=== PATIENT | female | born 1985 | race Caucasian/White ===

== ENCOUNTER → 2016-08-10 | Outpatient (CLI) | payer BC ==
[~2016-08-10] MED LIST: LORTAB 5/500 501 TAB PO; MOTRIN 600600 MG/TAB PO; MOTRIN 800800 MG/TAB PO; NOVOLOG 100U100 U/M1 SC; PERCOCET 325 MG1 TA2 PO; PHENERGAN 25 TA25 MG PO; PRENATAL MVI; PRENATAL VITAMI1 TAB PO; birth control patch
== END ==
LOC: SUN.DIA 08:47
DX: O24.419 Gestational diabetes mellitus in pregnancy, unspecified control (principal); Z3A.29 29 weeks gestation of pregnancy
CPT/HCPCS: G0108

== ENCOUNTER → 2016-08-17 | Outpatient (CLI) | payer BC | LOC: SUN.DIA 09:14 | DX: O24.419 Gestational diabetes mellitus in pregnancy, unspecified control (principal); Z71.3 Dietary counseling and surveillance; Z3A.31 31 weeks gestation of pregnancy | CPT/HCPCS: G0108 ==

== ENCOUNTER 2016-10-18 17:40 | Inpatient (IN) | payer BC ==
[~2016-10-18] VITALS: Ht 162.6 cm; Wt 83.2 kg
[2016-10-18] VITALS (11 sets, daily range): BP systolic 90–144; BP diastolic 53–76; PULSE 59–110; TEMP 98.6
[~2016-10-18 17:40] MED LIST changes: -MOTRIN 800800 MG/TAB PO; -PRENATAL MVI
[2016-10-18] MEDS ORDERED: PRENATAL MVI (17:59)
[2016-10-18 18:39] LABS: BASO % 0.3 % (0.0-2.0); EOS % 0.2 % (0-4.0); GRAN # 7.3 (1.4-6.5); GRAN % 75.8 % (42.2-75.2); HEMATOCRIT 37.2 % (37.0-47.0); HEMOGLOBIN 12.5 g/dl (12.5-16.0); LYMPH # 1.8 (1.2-3.4); LYMPH % 18.3 % (20.0-51.0); MEAN CELL VOLUME 81 fl (80.0-100.0); MEAN CORPUSCULAR HEMOGLOBIN 27 pg (27.0-31.0); MEAN CORPUSCULAR HGB CONC 34 g/dl (33.0-37.0); MEAN PLATELET VOLUME 10.8 fl (7.4-10.4); MONO # 0.5 (0.1-0.6); MONO % 4.9 % (1.7-9.3); PLATELET COUNT 197 K/mm3 (130-400); REDCELL DISTRIBUTION WIDTH-CV 15.4 % (11.5-14.5); WHITE BLOOD COUNT 9.6 K/mm3 (4.8-10.8)
[2016-10-19] VITALS (20 sets, daily range): BP systolic 101–140; BP diastolic 56–78; PULSE 65–122; TEMP 97.5–97.7
[2016-10-20 03:41] VITALS: BP 98/63; PULSE 69; TEMP 97.6
[2016-10-20 09:52] VITALS: BP 97/60; PULSE 64; TEMP 97.4
[2016-10-20 16:33] VITALS: BP 102/67; PULSE 68; TEMP 97.7
[2016-10-20] MEDS ORDERED: PERCOCET 325 MG1 TA2 PO (17:42)
[2016-10-20] MEDS ORDERED: MOTRIN 800800 MG/TAB PO (17:42)
[2016-10-20 19:00] VITALS: BP 127/81; PULSE 75; TEMP 98
[2016-10-21 08:58] VITALS: BP 117/65; PULSE 72; TEMP 98.3
== END 2016-10-21 11:15 | disposition home or self-care (01) | DRG 775 ==
LOC: LDRO 17:40 → OB 17:48 → LDR 17:48 → OB 10-19 04:52 → LDRO 10-21 15:51
PROVIDERS: Obstetrics & Gynecology
PROC: 10E0XZZ Delivery of Products of Conception, External Approach (ICD-10-PCS; principal; 2016-10-19)
PROC: 0KQM0ZZ Repair Perineum Muscle, Open Approach (ICD-10-PCS; 2016-10-19)
DX: O24.420 Gestational diabetes mellitus in childbirth, diet controlled (principal); O70.1 Second degree perineal laceration during delivery; Z3A.39 39 weeks gestation of pregnancy; Z37.0 Single live birth
CPT/HCPCS: J2210; J2590; J7120

== ENCOUNTER → 2018-08-10 | Outpatient (CLI) | payer BC ==
[~2018-08-10] MED LIST changes: +MOTRIN 800800 MG/TAB PO; +PRENATAL MVI
== END ==
LOC: SUN.DIA 08:41
DX: O24.419 Gestational diabetes mellitus in pregnancy, unspecified control (principal); Z3A.30 30 weeks gestation of pregnancy
CPT/HCPCS: G0108

== ENCOUNTER → 2018-08-29 | Outpatient (CLI) | payer BC | LOC: SUN.DIA 09:16 | DX: O24.419 Gestational diabetes mellitus in pregnancy, unspecified control (principal); Z3A.32 32 weeks gestation of pregnancy | CPT/HCPCS: G0108 ==

== ENCOUNTER → 2018-09-26 | Outpatient (CLI) | payer BC | LOC: DIA.ED 09:47 | DX: O24.419 Gestational diabetes mellitus in pregnancy, unspecified control (principal); Z3A.36 36 weeks gestation of pregnancy | CPT/HCPCS: G0108 ==

== ENCOUNTER 2018-10-21 07:43 | Inpatient (IN) | payer BC ==
[~2018-10-21] VITALS: Ht 162.6 cm; Wt 85.9 kg
[2018-10-21] VITALS (14 sets, daily range): BP systolic 108–170; BP diastolic 61–84; PULSE 71–118; TEMP 97.5–98.5
--- NOTE | 2018-10-21 07:50 | NUR ---
Pt here from ER with c/o contractions that started at 0500 this AM. 39.1 weeks gestation, G3L2. Pt states baby has been active, denies any vaginal bleeding or leaking of fluid. Pt to [facility], explained. SVE: /-2, bag of cesar intact. GBS negative. Pt requesting epidural. 0801:Dr Randolph called and notified of pt here. Orders received to admit and pt may have epidural. 0802:Yuridia DAMON called and notified. Assessment complete. Pt with hx of pp hemorrhage and pt failed 1 hr glucose test and chose to decline 3 hour and check BS. All BS have been WNL. IV started to left wrist. Blood drawn from site and LR bolus started and infusing without difficulty. Consents signed. FHR reactive, contractions every 3-5 minutes. 0820:Yuridia DAMON here and at bedside. Pt sitting up on side of bed. Single shot given at 0829, epidural placed. Pt repositioned to left side. 0840:Dr Randolph here and at nurse's station.
[2018-10-21] MEDS ORDERED: PROBIOTIC FORMU1 CAP PO (08:12)
[2018-10-21 08:28] LABS: BASO % 0.3 % (0.0-2.0); EOS % 0.3 % (0-4.0); GRAN # 8.6 (1.4-6.5); GRAN % 73.4 % (42.2-75.2); HEMOGLOBIN 13.8 g/dl (12.5-16.0); LYMPH # 2.2 (1.2-3.4); LYMPH % 18.8 % (20.0-51.0); MEAN CELL VOLUME 83 fl (80.0-100.0); MEAN CORPUSCULAR HEMOGLOBIN 28 pg (27.0-31.0); MEAN CORPUSCULAR HGB CONC 34 g/dl (33.0-37.0); MEAN PLATELET VOLUME 10.2 fl (7.4-10.4); MONO # 0.8 (0.1-0.6); MONO % 6.6 % (1.7-9.3); PLATELET COUNT 230 K/mm3 (130-400); RED BLOOD COUNT 4.92 M/mm3 (4.10-5.30); REDCELL DISTRIBUTION WIDTH-CV 13.6 % (11.5-14.5)
--- NOTE | 2018-10-21 08:42 | NUR ---
Dr Randolph at bedside and assessing patient and FHR strip. 0842: SVE per physician 90/0 and AROM with clear fluid noted. Plan of care discussed. Blood sugar-[address] Randolph notified. 0848: Patient states feeling very tired/weak, Blood pressure-84/52. LR bolus continues to bolus. 0850: Blood pressure-86/56 0853: Ephedrine IV 10mg given. 0858: BP-98/63 0900: BP-102/70, Patient states she is feeling better. 0903: BP-115/76 Patient comfortable and relaxed at this time.
--- NOTE | 2018-10-21 09:20 | NUR ---
SVE-10/100/0 Dr. Randolph at bedside and notified. Patient set up for vaginal delivery and bed taken apart. 0926: Patient begins to push per Dr. Toledo orders. 0936: Spontanous vaginal delivery of head and followed by body, infant to patient abdomen and Patricia RN assumes care of . Cord clamped by Dr. Randolph and cut by FOB. Cord blood obtained. 0840: Spontaneous vaginal delivery of placenta and pitocin started per protocol. Fundal massage done/firm/bleeding WNL. straight catherizes patient and begins to repairn laceration. Patient repositioned and ice pack to perieum. Plan of care discussed.
[2018-10-22 09:01] LABS: HEMATOCRIT 38.8 % (37.0-47.0); HEMOGLOBIN 12.5 g/dl (12.5-16.0)
[2018-10-22 09:30] VITALS: BP 113/78; PULSE 72; TEMP 98
[2018-10-22 16:27] VITALS: BP 126/87; PULSE 95; TEMP 98
[2018-10-22 20:15] VITALS: BP 120/80; PULSE 64; TEMP 98
[2018-10-23 08:45] VITALS: BP 119/70; PULSE 86; TEMP 97.5
[2018-10-23] MEDS ORDERED: MOTRIN 600600 MG/TAB PO (09:26)
--- NOTE | 2018-10-23 11:11 | NUR ---
Initial visit; Mom indisposed, Dad thanked [employer] for offering congratulations and God's blessings for the of their daughter. [employer] thanked family for choosing [place].
== END 2018-10-23 10:45 | disposition home or self-care (01) | DRG 807 ==
LOC: LDRO 07:43 → LDR 08:04 → OB 11:50
PROVIDERS: ADMIT Obstetrics & Gynecology
PROC: 10E0XZZ Delivery of Products of Conception, External Approach (ICD-10-PCS; principal; 2018-10-21)
PROC: 0KQM0ZZ Repair Perineum Muscle, Open Approach (ICD-10-PCS; 2018-10-21)
DX: O24.420 Gestational diabetes mellitus in childbirth, diet controlled (principal); Z37.0 Single live birth; O99.62 Diseases of the digestive system complicating childbirth; K21.9 Gastro-esophageal reflux disease without esophagitis; Z3A.39 39 weeks gestation of pregnancy; Z23 Encounter for immunization
CPT/HCPCS: J2590; J7120

== ENCOUNTER 2019-10-30 10:00 | Outpatient (RCR) | payer BC ==
[~2019-10-30 10:00] MED LIST changes: +PROBIOTIC FORMU1 CAP PO
== END 2019-10-30 12:58 | disposition home or self-care (01) ==
LOC: WSOT 10:00
DX: Z98.890 Other specified postprocedural states (principal)

== ENCOUNTER 2022-01-12 04:05 | Inpatient (IN) | payer BC ==
[2022-01-12] VITALS (29 sets, daily range): BP systolic 95–177; BP diastolic 53–88; PULSE 81–127; TEMP 97.9–98.8
[~2022-01-12] VITALS: Ht 162.6 cm; Wt 93.6 kg
--- NOTE | 2022-01-12 07:00 | NUR ---
2694 DR BLACKWELL CALLED AND UPDATED ON PT. DR BLACKWELL STATES "HE WILL BE IN SOON AND DISCUSS THE PLAN OF CARE WITH PT THEN".
[2022-01-12 07:33] LABS: HEMATOCRIT 39.3 % (37.0-47.0); HEMOGLOBIN 12.4 g/dl (12.5-16.0); MEAN CELL VOLUME 81 fl (80.0-100.0); MEAN CORPUSCULAR HEMOGLOBIN 26 pg (27-31); MEAN CORPUSCULAR HGB CONC 32 g/dl (33.0-37.0); MEAN PLATELET VOLUME 10.5 fl (7.4-10.4); PLATELET COUNT 207 K/mm3 (130-400); RED BLOOD COUNT 4.86 M/mm3 (4.10-5.30); REDCELL DISTRIBUTION WIDTH-CV 14.4 % (11.5-14.5)
[2022-01-12 07:48] LABS: ALBUMIN 2.7 gm/dL (3.5-5.0); BILIRUBIN,TOTAL 0.5 mg/dL (0.2-1.2); CALCIUM 8.5 mg/dL (8.4-10.2); CREATININE, serum 0.74 mg/dL (0.57-1.11); POTASSIUM 4.1 mmol/L (3.5-4.5); TOTAL PROTEIN 6.2 gm/dL (6.2-8.1)
--- NOTE | 2022-01-12 08:10 | NUR ---
0808 DR RISHI VALIENTE /-3. GIVES ORDERS TO THIS RN TO ADMIT PATIENT FOR ACTIVE LABOR. 0810 DR BLACKWELL CONFIRMS VERTEX PRESENTATION WITH ULTRASOUND.
[2022-01-12 08:54] LABS: BAND 1 % (0-10); HYPOCHROMIA 2+; LYMPHOCYTE 3 % (20.0-51.0); NEUTROPHILS 95 % (42.0-75.2); PLATELET ESTIMATE NORMAL (NORMAL)
--- NOTE | 2022-01-12 10:58 | NUR ---
MATERNAL HR TRACING
--- NOTE | 2022-01-12 11:10 | NUR ---
THIS RN GIVES B DONNY RN REPORT
--- NOTE | 2022-01-12 12:00 | NUR ---
1145- KIMBERLI Ray at bedside to place Pt on EFM and TOCO, difficult to get tracting well due to materanl position. 1152- Pt repostioned to RL, FHR found and tracing well. TOCO not tracing well due to maternal position.
--- NOTE | 2022-01-12 12:30 | NUR ---
1218- Pt repositioned to sitting on side of bed for epidural placement. MARISOL Shi at bedside. O2 sat monitor on and tracing maternal HR. FHR tracing maternal HR due to maternal position. 1225- Single shot, see anesthesia record. 1230- Pt assisted to semi-fowlers with LL. EFM and TOCO adjusted and tracing well.
--- NOTE | 2022-01-12 15:15 | NUR ---
1505- Dr Randolph at bedside. Whitman removed without difficulty. Pt and room prepped for delivery. Castillo Nursery RN at bedside. 1511- Pt pushes with UC, good movement of head noted. 1515- of viable male infant, tended to by nursery RN. Cord clamped and cut after delay of approx 60 seconds. Infant [id number] with mother. 1519- Spontaneous delivery of placenta. Fundus massaged to firm by MD. 2nd degree repair approximated by MD. Small amount of free flow bleeding noted, fundus firm. Pericare completed. Chux changed and ice pack to perineum.
--- NOTE | 2022-01-12 15:50 | NUR ---
1550- Benton sized cloted noted with fundal massage and moderate bleeding, fundus firm. Pt preparing to BF . 1600- Report given to KIMBERLI Ray, she assumes care at this time.
--- NOTE | 2022-01-12 18:00 | NUR ---
1800 PT UNABLE TO LIFT LEGS BILATERALLY. PT WAS TRANSFERED VIA [facility] TO ROOM. PAD, UNDERWEAR, AND GOWN CHANGED AT THIS TIME. EPIDURAL CATHETER REMOVED. PT UNABLE TO VOID. COMFORTABLE IN BED.
[2022-01-13 00:30] VITALS: BP 91/75; PULSE 56; TEMP 98.1
[2022-01-13 06:19] LABS: HEMOGLOBIN 11.5 g/dl (12.5-16.0)
[2022-01-13 06:23] LABS: HEMATOCRIT 35.5 % (37.0-47.0)
[2022-01-13] MEDS ORDERED: MOTRIN 600600 MG/TAB PO (06:54)
[2022-01-13 07:49] VITALS: BP 117/74; PULSE 65; TEMP 97.7
--- NOTE | 2022-01-13 10:28 | NUR ---
Initial visit; Patient thanked [employer] Political [employer] Professor for offering God's blessings to their family for the of their son for whom [employer] And Political [employer] Professor offered a special blessing.
[2022-01-13 19:00] VITALS: BP 111/77; PULSE 71; TEMP 97.7
--- NOTE | 2022-01-13 20:30 | NUR ---
ASSISTING KIMBERLI MARTINEZ. PT GIVEN METHERGINE PER ORDERS.
[2022-01-14 09:00] VITALS: BP 118/77; PULSE 77; TEMP 97.9
--- NOTE | 2022-01-14 10:30 | NUR ---
PT IS DISCHARGED BUT STAYING A BORDER MOM BABY IS IN NICU. DISCHARGE PLANNING AND EDUCATION DONE AND SIGNED.
== END 2022-01-14 10:30 | disposition home or self-care (01) | DRG 807 ==
LOC: LDRO 04:05 → LDR 04:40 → LDRO 08:26 → OB 08:27 → LDR 08:27 → OB 18:00
PROVIDERS: ADMIT Obstetrics & Gynecology
PROC: 10E0XZZ Delivery of Products of Conception, External Approach (ICD-10-PCS; principal; 2022-01-12)
PROC: 0KQM0ZZ Repair Perineum Muscle, Open Approach (ICD-10-PCS; 2022-01-12)
PROC: 10907ZC Drainage of Amniotic Fluid, Therapeutic from Products of Conception, Via Natural or Artificial Opening (ICD-10-PCS; 2022-01-12)
DX: O24.420 Gestational diabetes mellitus in childbirth, diet controlled (principal); Z37.0 Single live birth; O40.3XX0 Polyhydramnios, third trimester, not applicable or unspecified; O36.63X0 Maternal care for excessive fetal growth, third trimester, not applicable or unspecified; Z3A.37 37 weeks gestation of pregnancy; O70.1 Second degree perineal laceration during delivery; Z23 Encounter for immunization
CPT/HCPCS: J2210; J2405; J2590; J2795; J7120